=== PATIENT | female | born 1950 | race Caucasian/White ===

== ENCOUNTER 2017-06-23 12:11 | Day surgery (SDC) | payer MEDICARE ==
[~2017-06-23] VITALS: Ht 164.1 cm; Wt 61.4 kg
[~2017-06-23 12:11] MED LIST: RIZA10TA27 PO
[2017-06-23] MEDS ORDERED: fentaNYL/PF 50MCG/1 ML 2ML syringe ONE (12:34)
[2017-06-23] MEDS ORDERED: LIDOcaine Viscous 15ml cup ONE (12:35)
[2017-06-23] MEDS ORDERED: midazolam 2 mg/2 ml injection ONE ×2 (12:35→13:18)
[2017-06-23] MEDS ORDERED: ATOR40TA PO (12:45)
[2017-06-23] MEDS ORDERED: OMEP40CA37 PO (12:45)
[2017-06-23] MEDS ORDERED: ASPI-803 (12:45)
[2017-06-23] MEDS ORDERED: HYDR-3965 PO (12:45)
[2017-06-23] MEDS ORDERED: METF500T PO (12:45)
[2017-06-23] MEDS ORDERED: RANI150C4 PO (12:45)
[2017-06-23] MEDS ORDERED: PRAM0.253 PO (12:45)
[2017-06-23] MEDS ORDERED: GLUC100017 PO (12:45)
[2017-06-23] MEDS ORDERED: LORA10TA7 PO (12:45)
[2017-06-23] MEDS ORDERED: MELO-100 PO (12:45)
[2017-06-23] MEDS ORDERED: SUMA25TA35 PO (12:45)
[2017-06-23] MEDS ORDERED: LOSA25TA96 PO (12:45)
[2017-06-23] MEDS ORDERED: TRIA1CAP6 PO (12:45)
[2017-06-23] MEDS ORDERED: ADV50100 IH (12:45)
[2017-06-23 12:59] VITALS: BP 152/99
[2017-06-23 13:28] VITALS: BP 117/74
[2017-06-23 13:38] VITALS: BP 147/90
[2017-06-23 13:48] VITALS: BP 134/80
== END 2017-06-23 14:07 | disposition home or self-care (01) ==
LOC: GI LAB 12:11
PROVIDERS: ATTEND Internal Medicine Gastroenterology
DX: K29.50 Unspecified chronic gastritis without bleeding (principal); K26.9 Duodenal ulcer, unspecified as acute or chronic, without hemorrhage or perforation; E78.5 Hyperlipidemia, unspecified; K21.9 Gastro-esophageal reflux disease without esophagitis; M19.90 Unspecified osteoarthritis, unspecified site; E11.9 Type 2 diabetes mellitus without complications; Z90.49 Acquired absence of other specified parts of digestive tract; Z79.82 Long term (current) use of aspirin; Z79.4 Long term (current) use of insulin; Z79.899 Other long term (current) drug therapy
CPT/HCPCS: 43239; G0500; J2250; J3010; J7030; A4620